=== PATIENT | male | born 1985 | race Caucasian/White ===

== ENCOUNTER → 2023-10-04 09:15 | Outpatient (REF) | payer OTHER, SELFPAY | LOC: HWRAD 09:15 | PROVIDERS: ATTENDING PHYSICIAN Physician Assistant Medical | DX: M25.551 Pain in right hip (principal); R10.31 Right lower quadrant pain; M54.31 Sciatica, right side | CPT/HCPCS: 72110; 73502 ==

== ENCOUNTER → 2023-10-13 08:46 | Outpatient (REF) | payer OTHER, SELFPAY | LOC: PAVMRI 08:46 | PROVIDERS: ATTENDING PHYSICIAN Orthopaedic Surgery; FAMILY PHYSICIAN Family Medicine | DX: M25.551 Pain in right hip (principal) | CPT/HCPCS: 73721 ==

== ENCOUNTER 2024-05-12 23:18 | Emergency (ER) | payer OTHER, SELFPAY ==
[2024-05-12 23:25] VITALS: BP 120/80
--- NOTE | 2024-05-12 23:57 | ED.GENMED ---
History of Present Illness
General
Chief Complaint: Musculo-Skeletal Complaint
Source: patient
Time Seen by Provider: 05/12/24 23:31
History of Present Illness
History of Present Illness:
Patient planing injury to his left fifth digit. Patient was playing in a hockey league and was struck by a 'slap shot'. Patient has significant pain and he noted deformity of the finger. Patient is right-hand dominant. No other injuries.
Past History
Past History
ED Past Medical History: None
ED Past Surgical History: Orthopedic
Social History
Tobacco: Non-smoker
Alcohol: Occasional
Drug: Marijuana
Personal:
Living: with family
Employment: Employed
Phy Exam
Physical Exam
Physical Exam:
General: Awake, Alert, Oriented X3. No acute distress.
Vitals: unremarkable
Head: Atraumatic
Neuro: Nonfocal
Skin: Warm, dry, no rash
Extremities: pulses equal b/l, no edema. Left fifth digit somewhat deformed and that it appears shorter than expected. There is swelling over the base of the finger. Tender with palpation or motion.
Course
Orders/Labs/Results
Orders:
Orders
05/12/24 23:21
Finger(s)/Thumb 2 View Lt [CR Finger(s)/thumb Min 2 Vw Lt] Urgent
Comment:
Reason For Exam: SLAPSHOT TO HAND
Indicate Which Finger:: Little Finger
05/13/24 00:03
Ibuprofen [Motrin] 600 mg PO NOW STA
Vital Signs
Initial and Last Documented VS:
Initial Vital Signs
Temp Pulse Resp BP Pulse Ox
98.2 F 86 22 120/80 98
05/12/24 23:25 05/12/24 23:25 05/12/24 23:25 05/12/24 23:25 05/12/24 23:25
Last Documented Vital Signs
Temp Pulse Resp BP Pulse Ox
98.2 F 79 18 130/90 99
05/12/24 23:25 05/13/24 00:16 05/13/24 00:16 05/13/24 00:16 05/13/24 00:16
Procedures
Splinting/Sling Placement
Left Fifth Finger:
Procedure completed by: Myself
Pre-splint extermity exam: neurovascular intact
Type of splint: dorsal/volar
Splint material: aluminum-foam
Splint checked by provider?: Yes
MDM/Problems Addressed
Differential Diagnosis Includes:
Fracture phalanx, dislocation, contusion
MDM/Problems Addressed:
Imaging shows a comminuted fracture of the proximal phalanx of the fifth left digit. Splint placed primarily for comfort. Patient has some deformity of the finger which may require surgical treatment. Patient will be discharged and recommended he
call hand surgery tomorrow
*Radiology
Radiology exam reviewed: preliminary read by ED provider (Comminuted fracture of the fifth proximal phalanx)
*Critical Care Note
Total Time (30-74mins, 75-104mins- exclusive of procedures): Not Applicable
ED Attending Note
-
Portions of this chart may have been created with voice recognition software.� Occasional wrong word or��sound alike� substitutions may have occurred due to the inherent limitations of voice recognition software.
Discharge Plan
Departure
Patient Disposition: Home (Routine Discharge)
Date of Disposition: 05/13/24
Time of Disposition: 00:01
Patient with high blood pressure during this ER visit?: No
Condition: Good
Discharge Problem:
Fracture of proximal phalanx of digit of left hand
Instructions: Finger Fracture ED
Prescriptions:
No Action
No Current Medications
0
Referrals:
Oleg Campbell MD [Family Provider] -
Fermin Hall MD [Active] -
Activity Restrictions/Additional Instructions:
Call Dr. Hall's office in the morning to arrange an appointment. You finger may require an operation to heal properly.
Interventions
Interventions:
*Risk Screen - Suicide Last Done: 05/12/24 23:21
*General Assessment Last Done: 05/13/24 00:12
*Neglect/Abuse Screening Last Done: 05/12/24 23:21
ED- Fall Risk Assessment Last Done: 05/13/24 00:16
*ED COVID-19 Vaccine History Last Done: 05/13/24 00:12
*Nursing Disposition Last Done: 05/13/24 00:16
ED-Musculoskeletal Assessment Last Done: 05/13/24 00:08
Discharge Date and Time
Discharge Date/Time: 05/13/24 00:17
Print Language: SERBIAN
[2024-05-13] MEDS: MOTRIN 600 MG PO (00:13)
[2024-05-13 00:16] VITALS: BP 130/90
== END 2024-05-13 00:17 | disposition home or self-care (01) ==
LOC: EMR 23:18
PROVIDERS: EMERGENCY PHYSICIAN Emergency Medicine; FAMILY PHYSICIAN Family Medicine
DX: S62.617A Displaced fracture of proximal phalanx of left little finger, initial encounter for closed fracture (principal); W21.89XA Striking against or struck by other sports equipment, initial encounter
CPT/HCPCS: 29130; 99283; 73140